=== PATIENT | female | born 1955 | race Caucasian/White ===

== ENCOUNTER 2018-07-30 09:05 | Day surgery (SDC) ==
[2018-07-30] MEDS: BETADINE OPTH PREP OP PRN ×2 (09:30→10:09)
[2018-07-30] MEDS: TETRACAINE 0.5% UNIT-DOSE OP PRN ×2 (09:30→10:09)
[2018-07-30] MEDS: CYCLOGYL 2% OPTH OP PRN ×3 (09:31→09:41)
[2018-07-30] MEDS ORDERED: DEX-MOXI-KETOR OPTH INJ 1/0.5/0.4 MG/ML IO ONE (09:41)
[2018-07-30] MEDS ORDERED: ZOFRAN 4 MG/2 ML IVP ONE (09:41)
[2018-07-30] MEDS ORDERED: LIDOCAINE 1%/PHENYLEPHRINE 1.5% BSS (SURGERY) INTRAOCULA ONE (09:41)
[2018-07-30] MEDS ORDERED: BRIMONIDINE TARTRATE 0.2% OPTH SOL OP PRN (09:41)
[2018-07-30] MEDS ORDERED: BSS WITH EPINEPHRINE OP ONE (09:41)
[2018-07-30] MEDS ORDERED: LIDOCAINE 1% 20 ML MDV ID STA (09:41)
[2018-07-30 09:49] VITALS: TEMP 98.2
[2018-07-30] MEDS ORDERED: SUBLIMAZE ONE (10:30)
[2018-07-30] MEDS ORDERED: ZOFRAN 4 MG/2 ML ONE (10:30)
[2018-07-30] MEDS ORDERED: VERSED ONE (10:30)
[2018-07-30 14:23] VITALS: BP 124/66
== END 2018-07-30 11:20 | disposition home or self-care (01) ==
LOC: SURG 09:05
PROVIDERS: ATTEND Ophthalmology
DX: H25.11 Age-related nuclear cataract, right eye (principal)

== ENCOUNTER 2018-08-12 09:12 | Day surgery (SDC) ==
[2018-08-12] MEDS: BETADINE OPTH PREP OP PRN ×2 (10:05→10:30)
[2018-08-12] MEDS: TETRACAINE 0.5% UNIT-DOSE OP PRN ×2 (10:05→10:30)
[2018-08-12] MEDS: CYCLOGYL 2% OPTH OP PRN ×3 (10:06→10:16)
[2018-08-12] MEDS ORDERED: LIDOCAINE 1% 20 ML MDV ID STA (10:12)
[2018-08-12] MEDS ORDERED: BRIMONIDINE TARTRATE 0.2% OPTH SOL OP PRN (10:12)
[2018-08-12] MEDS ORDERED: DEX-MOXI-KETOR OPTH INJ 1/0.5/0.4 MG/ML IO ONE (10:12)
[2018-08-12] MEDS ORDERED: BSS WITH EPINEPHRINE OP ONE (10:12)
[2018-08-12] MEDS ORDERED: ZOFRAN 4 MG/2 ML IVP ONE (10:12)
[2018-08-12] MEDS ORDERED: LIDOCAINE 1%/PHENYLEPHRINE 1.5% BSS (SURGERY) INTRAOCULA ONE (10:12)
[2018-08-12 10:20] VITALS: TEMP 98.3
[2018-08-12] MEDS ORDERED: ZOFRAN 4 MG/2 ML ONE (10:38)
[2018-08-12] MEDS ORDERED: SUBLIMAZE ONE (10:38)
[2018-08-12] MEDS ORDERED: VERSED ONE (10:38)
[2018-08-14 11:15] VITALS: BP 121/56
== END 2018-08-12 11:55 | disposition home or self-care (01) ==
LOC: SURG 09:12
PROVIDERS: ATTEND Ophthalmology
DX: H25.12 Age-related nuclear cataract, left eye (principal)